=== PATIENT | female | born 1970 | race Caucasian/White ===

== ENCOUNTER 2017-02-13 13:19 | Emergency (ER) | payer OTHER ==
[2017-02-13 14:41] VITALS: BP 142/78
--- NOTE | 2017-02-13 15:07 | UC ---
Throat Pain/Nasal Heike HPI - HPI Summary HPI Summary: ST, nasal heike, mild cough, chills starting about a week ago. 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 Denies trouble breathing, rash, or measured fever. - History of Current Complaint Chief Complaint: UCGeneralIllness Stated Complaint: THROAT,FEVER,COUGH Time Seen by Provider: 02/13/17 14:51 Hx Obtained From: Patient Hx Last Menstrual Period: on Depo Provera ?: No Onset/Duration: Gradual Onset, Lasting Days Severity: Moderate Cough: Productive - occ Associated Signs & Symptoms: Positive: Sinus Discomfort, Nasal Discharge. Negative: Wheezing, Vomiting, Rash - Allergies/Home Medications Allergies/Adverse Reactions: Allergies Allergy/AdvReac Type Severity Reaction Status Date / Time Lactose Allergy Diarrhea Verified 02/13/17 14:41 Hay Allergy Headache, Uncoded 02/13/17 14:41 Nasal Congestion, Shortness of Breath Home Medications: Home Medications Loratadine [Claritin 10 MG CAP] 10 mg PO DAILY 02/13/17 [History Confirmed 02/13] PMH/Surg Hx/FS Hx/Imm Hx Previously Healthy: Yes - Surgical History Surgical History: Yes Surgery Procedure, Year, and Place: Right shoulder Surgery [address] [facility] [place] - Family History Known Family History: Positive: None - Social History Occupation: Employed Full-time Alcohol Use: Occasionally Substance Use Type: None Smoking Status (MU): Never Smoked Tobacco Review of Systems Constitutional: Chills, Fatigue Skin: Negative Eyes: Negative ENT: Sore Throat, Nasal Discharge, Sinus Congestion, Sinus Pain/Tenderness Respiratory: Cough Cardiovascular: Negative Gastrointestinal: Negative Genitourinary: Negative Motor: Negative Neurovascular: Negative Musculoskeletal: Negative Neurological: Negative Psychological: Negative All Other Systems Reviewed And Are Negative: Yes Physical Exam Triage Information Reviewed: Yes Appearance: Well-Appearing, No Pain Distress, Well-Nourished Vital Signs: Initial Vital Signs Temp 99.5 F 02/13/17 14:38 Pulse 78 02/13/17 14:38 Resp 16 02/13/17 14:38 BP 142/78 02/13/17 14:38 Pulse Ox 98 02/13/17 14:38 Vital Signs Reviewed: Yes Eye Exam: Normal Eyes: Positive: Conjunctiva Clear ENT: Positive: Hearing grossly normal, Pharynx normal, Nasal congestion, TMs normal. Negative: Tonsillar swelling, Tonsillar exudate Dental Exam: Normal Neck exam: Normal Neck: Positive: Supple, Nontender, No Lymphadenopathy Respiratory Exam: Normal Respiratory: Positive: Chest non-tender, Lungs clear, Normal breath sounds, No respiratory distress, No accessory muscle use Cardiovascular Exam: Normal Cardiovascular: Positive: RRR, No Murmur Musculoskeletal Exam: Normal Neurological Exam: Normal Neurological: Positive: Alert Psychological Exam: Normal Skin Exam: Normal Throat Pain/Nasal Course/Dx - Differential Dx/Diagnosis Provider Diagnoses: URI, likely viral Discharge - Discharge Plan Condition: Stable Disposition: HOME Patient Education Materials: Sinusitis (ED), Upper Respiratory Infection (ED) Referrals: Ann De Los Santos MD [Primary Care Provider] - Additional Instructions: Rapid strep negative. Though you have clear symptoms of sinus inflammation, chances are very good that it is viral at this time. I expect you to see clear improvement in the next few days. If not, or if you are worsening, please call or return. Come back if you develop increasing fever, shortness of breath, chest pain, bloody sputum, or otherwise worsen. If you have not improved at all after several days, contact your primary care physician or return here.
== END 2017-02-13 15:07 | disposition home or self-care (01) ==
LOC: UCCORT 13:19
DX: J06.9 Acute upper respiratory infection, unspecified (principal)
CPT/HCPCS: 87651; 99211; G0463

== ENCOUNTER 2017-04-27 16:14 | Emergency (ER) | payer OTHER ==
[2017-04-27 16:29] VITALS: BP 135/77
[2017-04-27] MEDS ORDERED: Fluorescein Sodium TOPICAL* 1 MG TEST OPHTHALMIC ONE (16:36)
[2017-04-27] MEDS ORDERED: BSS OPTH.SOL* BTL OPHTHALMIC ONE (16:37)
[2017-04-27] MEDS ORDERED: Erythromycin OPTH OINT* APPLIC OINT LEFT EYE ONE (16:42)
--- NOTE | 2017-04-27 16:49 | UC ---
Eye Complaint HPI - HPI Summary HPI Summary: patients left eye has been irritated and she is rubbing it small amount of pain on the bottom of the eye - History of Current Complaint Chief Complaint: UCEye Stated Complaint: LEFT EYE COMPLAINT Time Seen by Provider: 04/27/17 16:16 Hx Obtained From: Patient Hx Last Menstrual Period: on Depo ?: No Onset/Duration: Sudden Onset, Lasting Days Timing: Constant Severity Initially: Mild Severity Currently: Mild Location of Injury: Sclera Character: Foreign Body Sensation Alleviating Factor(s): Nothing Associated Signs And Symptoms: Positive: Drainage (Clear) - Allergies/Home Medications Allergies/Adverse Reactions: Allergies Allergy/AdvReac Type Severity Reaction Status Date / Time Lactose Allergy Diarrhea Verified 02/13/17 14:41 Hay Allergy Headache, Uncoded 02/13/17 14:41 Nasal Congestion, Shortness of Breath Home Medications: Home Medications Biotin [Eql Biotin] 5,000 mcg PO 04/27/17 [History] PMH/Surg Hx/FS Hx/Imm Hx Previously Healthy: Yes - Surgical History Surgical History: Yes Surgery Procedure, Year, and Place: Right shoulder Surgery 2007 [facility] [place] - Family History Known Family History: Positive: None Negative: Cardiac Disease, Hypertension - Social History Alcohol Use: Occasionally Substance Use Type: None Smoking Status (MU): Never Smoked Tobacco Review of Systems Constitutional: Negative Skin: Negative Eyes: Eye Redness ENT: Negative Respiratory: Negative Cardiovascular: Negative Gastrointestinal: Negative Genitourinary: Negative Motor: Negative Neurovascular: Negative Musculoskeletal: Negative Neurological: Negative Psychological: Negative All Other Systems Reviewed And Are Negative: Yes Physical Exam Triage Information Reviewed: Yes Appearance: Well-Appearing, Well-Nourished, Pain Distress Vital Signs: Initial Vital Signs Temp 97.9 F 04/27/17 16:20 Pulse 62 04/27/17 16:20 Resp 16 04/27/17 16:20 BP 135/77 04/27/17 16:20 Pulse Ox 100 04/27/17 16:20 Vital Signs Reviewed: Yes Eye Exam: Normal Eyes: Positive: Discharge - clear tearing, sclera red and irritiated, flu melody exam shows multiple uptake of fluerescene as evidence of rubbing. ENT Exam: Normal ENT: Positive: Hearing grossly normal, Pharynx normal, TMs normal Dental Exam: Normal Neck exam: Normal Neck: Positive: Supple, Nontender, No Lymphadenopathy Respiratory Exam: Normal Respiratory: Positive: Chest non-tender, Lungs clear, Normal breath sounds Cardiovascular Exam: Normal Cardiovascular: Positive: RRR, No Murmur, Pulses Normal Abdominal Exam: Normal Abdomen Description: Positive: Nontender, No Organomegaly, Soft Musculoskeletal Exam: Normal Neurological Exam: Normal Psychological Exam: Normal Eye Complaint Course/Dx - Course Course Of Treatment: hx obtained, exam perfromed, meds reviewed, treaeted for mild abrasions - Differential Dx/Diagnosis Differential Diagnosis/HQI/PQRI: Conjunctivitis Provider Diagnoses: corneal abrasion Discharge - Discharge Plan Condition: Stable Disposition: HOME Patient Education Materials: Corneal Abrasion (ED)
== END 2017-04-27 17:09 | disposition home or self-care (01) ==
LOC: UCCORT 16:14
DX: S05.02XA Injury of conjunctiva and corneal abrasion without foreign body, left eye, initial encounter (principal); X58.XXXA Exposure to other specified factors, initial encounter
CPT/HCPCS: 99212; A9270-GY; G0463

== ENCOUNTER 2018-01-07 08:26 | Emergency (ER) | payer OTHER ==
[2018-01-07 08:41] VITALS: BP 129/80
--- NOTE | 2018-01-07 08:56 | UC ---
Throat Pain/Nasal Uli HPI - HPI Summary HPI Summary: sore throat x 3 days also c/o right ear pain and swollen neck glands on the right side no fever, no chills, no body aches , no nasal congestion , no cough - History of Current Complaint Chief Complaint: UCGeneralIllness Stated Complaint: SORE THROAT,EARS Time Seen by Provider: 01/07/18 08:42 Hx Obtained From: Patient Hx Last Menstrual Period: unknown, depo ?: No Onset/Duration: Gradual Onset, Lasting Days - 3, Still Present Severity: Moderate Pain Intensity: 8 Cough: None Associated Signs & Symptoms: Negative: Negative, Dysphagia, FB Sensation, Drooling, Wheezing, Hoarseness, Sinus Discomfort, Nasal Discharge, Fever, Vomiting, Rash - Allergies/Home Medications Allergies/Adverse Reactions: Allergies Allergy/AdvReac Type Severity Reaction Status Date / Time lactose Allergy Diarrhea Verified 01/07/18 08:37 Hay Allergy Headache, Uncoded 02/13/17 14:41 Nasal Congestion, Shortness of Breath Home Medications: Home Medications Biotin 1 mg PO DAILY 01/07/18 [History Confirmed 01/07/18] PMH/Surg Hx/FS Hx/Imm Hx Neurological History: Migraine - Surgical History Surgical History: Yes Surgery Procedure, Year, and Place: Right shoulder Surgery 2007 [facility] [place] - Family History Known Family History: Positive: None Negative: Cardiac Disease, Hypertension - Social History Alcohol Use: Occasionally Substance Use Type: None Smoking Status (MU): Never Smoked Tobacco Review of Systems Constitutional: Negative Skin: Negative Eyes: Negative ENT: Sore Throat, Ear Ache Respiratory: Negative Cardiovascular: Negative Gastrointestinal: Negative Genitourinary: Negative Is Patient Immunocompromised?: No All Other Systems Reviewed And Are Negative: Yes Physical Exam Triage Information Reviewed: Yes Appearance: Well-Appearing, No Pain Distress, Well-Nourished Vital Signs: Initial Vital Signs Temp 99.1 F 01/07/18 08:36 Pulse 84 01/07/18 08:36 Resp 17 01/07/18 08:36 BP 129/80 01/07/18 08:36 Pulse Ox 99 01/07/18 08:36 Vital Signs Reviewed: Yes Eye Exam: Normal Eyes: Positive: Conjunctiva Clear ENT: Positive: Normal ENT inspection, Hearing grossly normal, Pharyngeal erythema, TMs normal. Negative: TM bulging, TM dull, TM red, Tonsillar swelling , Tonsillar exudate Neck: Positive: Supple, Tenderness @, Enlarged Nodes @ - right side anterior cervical lymphadenopathy Respiratory: Positive: Chest non-tender, Lungs clear, Normal breath sounds, No respiratory distress Cardiovascular: Positive: RRR, No Murmur, Pulses Normal Skin Exam: Normal Throat Pain/Nasal Course/Dx - Differential Dx/Diagnosis Provider Diagnoses: pharyngitis. otalgia Discharge - Sign-Out/Discharge Documenting (check all that apply): Discharge/Admit/Transfer - Discharge Plan Condition: Stable Disposition: HOME Patient Education Materials: Pharyngitis (ED) Referrals: Ann De Los Santos MD [Primary Care Provider] - If Needed Additional Instructions: negative Rapid strep viral pharyngitis , no need for antibiotics - Billing Disposition and Condition Condition: STABLE Disposition: HOME
== END 2018-01-07 09:04 | disposition home or self-care (01) ==
LOC: UCCORT 08:26
DX: J02.9 Acute pharyngitis, unspecified (principal); H92.01 Otalgia, right ear
CPT/HCPCS: 87651; 99211; G0463

== ENCOUNTER 2018-12-18 12:26 | Emergency (ER) | payer OTHER ==
[2018-12-18 14:13] VITALS: BP 136/81
--- NOTE | 2018-12-18 14:33 | UC ---
Throat Pain/Nasal Uli HPI - HPI Summary HPI Summary: "Sinus" pressure, "greenish brown" congestion, and dental pain for one week. No known fever. Sensation of "there's something stuck in my throat ... I known nothing's there ... dry" aggrevated by swallowing since last night. - History of Current Complaint Chief Complaint: UCRespiratory Stated Complaint: SORE THROAT, SINUS Time Seen by Provider: 12/18/18 14:18 Hx Obtained From: Patient Hx Last Menstrual Period: Depo-Provera ?: No Onset/Duration: Sudden Onset, Lasting Days Severity: Severe Pain Intensity: 8 Associated Signs & Symptoms: Positive: Dysphagia, Sinus Discomfort, Nasal Discharge - Allergies/Home Medications Allergies/Adverse Reactions: Allergies Allergy/AdvReac Type Severity Reaction Status Date / Time amoxicillin [From Augmentin] Allergy Rash Verified 12/18/18 14:09 clavulanic acid Allergy Rash Verified 12/18/18 14:09 [From Augmentin] lactose Allergy Diarrhea Verified 12/18/18 14:09 Hay Allergy Headache, Uncoded 12/18/18 14:09 Nasal Congestion, Shortness of Breath Home Medications: Home Medications Calcium Carb/Vit D3/Minerals [Calcium 600+D Plus [place]] 1 tab PO BID 12/18/18 [ History Confirmed 12/18/18] PMH/Surg Hx/FS Hx/Imm Hx Previously Healthy: Yes - Surgical History Surgical History: Yes Surgery Procedure, Year, and Place: Right shoulder Surgery 2007 [facility] [place] - Family History Known Family History: Positive: None Negative: Cardiac Disease, Hypertension - Social History Alcohol Use: Occasionally Substance Use Type: None Smoking Status (MU): Never Smoked Tobacco Review of Systems All Other Systems Reviewed And Are Negative: Yes ENT: Positive: Sore Throat, Ear Ache, Nasal Discharge, Sinus Congestion Neurological: Positive: Headache Is Patient Immunocompromised?: No Physical Exam Triage Information Reviewed: Yes Appearance: Well-Nourished, Ill-Appearing, Pain Distress Vital Signs: Initial Vital Signs Temp 98.9 F 12/18/18 14:06 Pulse 72 12/18/18 14:06 Resp 16 12/18/18 14:06 BP 136/81 12/18/18 14:06 Pulse Ox 100 12/18/18 14:06 Vital Signs Reviewed: Yes Eye Exam: Normal ENT: Positive: Pharyngeal erythema, Nasal congestion, Nasal drainage, Sinus tenderness Dental: Positive: Other: - pin of the upper right gum line Neck exam: Normal Cardiovascular Exam: Normal Cardiovascular: Positive: RRR, No Murmur, Pulses Normal Abdominal Exam: Normal Abdomen Description: Positive: Nontender, No Organomegaly, Soft Musculoskeletal Exam: Normal Neurological Exam: Normal Psychological Exam: Normal Skin Exam: Normal Throat Pain/Nasal Course/Dx - Course Course Of Treatment: hx obtained, exam performed ,meds reviewed, treated for sinusitis - Differential Dx/Diagnosis Differential Diagnosis/HQI/PQRI: Otitis Media, Pharyngitis, Sinusitis, URI Provider Diagnosis: Sinusitis Discharge - Sign-Out/Discharge Documenting (check all that apply): Patient Departure All imaging exams completed and their final reports reviewed: No Studies - Discharge Plan Condition: Stable Disposition: HOME Prescriptions: Azithromyxin ABEL (NF) [Z-Abel (Zithromax) 250 mg tabs #6] 2 tab PO .TODAY, THEN 1 DAILY #6 tab predniSONE [Prednisone 20 MG TAB] 40 mg PO DAILY #10 tablet Patient Education Materials: Sinusitis (ED) Referrals: Apple Pablo [Primary Care Provider] - Additional Instructions: 1. take the medication as prescribed 2. Increase fluid intake and get plenty of rest 3. Warm compresses to the sinus for pain 4. Ibuprofen as needed. - Billing Disposition and Condition Condition: STABLE Disposition: Home
== END 2018-12-18 14:40 | disposition home or self-care (01) ==
LOC: UCCORT 12:26
DX: J32.9 Chronic sinusitis, unspecified (principal); K08.89 Other specified disorders of teeth and supporting structures; R09.89 Other specified symptoms and signs involving the circulatory and respiratory systems; J02.9 Acute pharyngitis, unspecified; H92.09 Otalgia, unspecified ear; Z88.0 Allergy status to penicillin; Z91.011 Allergy to milk products; Z91.09 Other allergy status, other than to drugs and biological substances
CPT/HCPCS: 99212; G0463

== ENCOUNTER 2019-02-25 12:05 | Emergency (ER) | payer OTHER ==
[2019-02-25 13:21] VITALS: BP 138/87
--- NOTE | 2019-02-25 13:31 | UC ---
Throat Pain/Nasal Uli HPI - HPI Summary HPI Summary: 48-year-old female comes in with a chief complaint of upper respiratory tract infection symptoms symptoms for about one half weeks. She's had rhinorrhea. She has maxillary sinus pressure with brown rhinorrhea. She's been using the [place] pot which makes her nauseous. No recent fevers or chills. She's having some pressure in the right ear. No cough or chest congestion or shortness of breath. - History of Current Complaint Chief Complaint: UCGeneralIllness Stated Complaint: SINUS CONCERN Time Seen by Provider: 02/25/19 13:16 Hx Last Menstrual Period: Depo-Provera Pain Intensity: 8 - Allergies/Home Medications Allergies/Adverse Reactions: Allergies Allergy/AdvReac Type Severity Reaction Status Date / Time amoxicillin [From Augmentin] Allergy Rash Verified 02/25/19 13:21 clavulanic acid Allergy Rash Verified 02/25/19 13:21 [From Augmentin] lactose Allergy Diarrhea Verified 02/25/19 13:21 Hay Allergy Headache, Uncoded 02/25/19 13:21 Nasal Congestion, Shortness of Breath PMH/Surg Hx/FS Hx/Imm Hx Previously Healthy: Yes Neurological History: Migraine - Surgical History Surgical History: Yes Surgery Procedure, Year, and Place: Right shoulder Surgery 2007 [facility] [place] - Family History Known Family History: Positive: None Negative: Cardiac Disease, Hypertension - Social History Alcohol Use: Occasionally Substance Use Type: None Smoking Status (MU): Never Smoked Tobacco Review of Systems All Other Systems Reviewed And Are Negative: Yes Constitutional: Positive: Negative Skin: Positive: Negative Eyes: Positive: Negative ENT: Positive: Ear Ache, Nasal Discharge, Sinus Congestion, Sinus Pain/ Tenderness Respiratory: Positive: Negative Cardiovascular: Positive: Negative Gastrointestinal: Positive: Negative Motor: Positive: Negative Neurovascular: Positive: Negative Musculoskeletal: Positive: Negative Neurological: Positive: Negative Psychological: Positive: Negative Is Patient Immunocompromised?: No Physical Exam Triage Information Reviewed: Yes Appearance: Well-Appearing, No Pain Distress, Well-Nourished Vital Signs: Initial Vital Signs Temp 97.0 F 02/25/19 13:15 Pulse 78 02/25/19 13:15 Resp 18 02/25/19 13:15 BP 138/87 02/25/19 13:15 Pulse Ox 100 02/25/19 13:15 Vital Signs Reviewed: Yes Eye Exam: Normal Eyes: Positive: Conjunctiva Clear ENT: Positive: Pharyngeal erythema, Nasal congestion, Nasal drainage, TMs normal Neck: Positive: Supple, Nontender Respiratory: Positive: Lungs clear Cardiovascular: Positive: RRR Musculoskeletal Exam: Normal Musculoskeletal: Positive: Strength Intact, ROM Intact Neurological: Positive: Alert, Muscle Tone Normal Psychological Exam: Normal Psychological: Positive: Age Appropriate Behavior Skin Exam: Normal Throat Pain/Nasal Course/Dx - Differential Dx/Diagnosis Provider Diagnosis: Sinusitis Discharge - Sign-Out/Discharge Documenting (check all that apply): Patient Departure All imaging exams completed and their final reports reviewed: No Studies - Discharge Plan Condition: Stable Disposition: HOME Prescriptions: DOXYcycline CAP(*) [DOXYcycline 100MG CAP(*)] 100 mg PO BID #20 cap Fluconazole 150 MG TAB* [Diflucan 150 MG TAB*] 150 mg PO ONCE #2 tablet Patient Education Materials: Sinusitis (ED) Referrals: Apple Pablo [Primary Care Provider] - Additional Instructions: FOLLOW UP WITH YOUR DOCTOR IF NOT COMPLETELY IMPROVED. GET REEVALUATED SOONER IF WORSE OR ANY QUESTIONS OR CONCERNS. - Billing Disposition and Condition Condition: STABLE Disposition: Home
== END 2019-02-25 13:38 | disposition home or self-care (01) ==
LOC: UCCORT 12:05
DX: J32.9 Chronic sinusitis, unspecified (principal); Z88.0 Allergy status to penicillin
CPT/HCPCS: 99212; G0463

== ENCOUNTER 2019-05-15 12:53 | Emergency (ER) | payer OTHER ==
[2019-05-15 13:34] VITALS: BP 142/83
--- NOTE | 2019-05-15 13:43 | UC ---
Throat Pain/Nasal Uli HPI - HPI Summary HPI Summary: 48-year-old female comes in with a chief complaint of 2 weeks of upper respiratory tract and sinus infection symptoms. She said rhinorrhea that has become increasingly dark with blood in it. She has maxillary sinus pressure and pain in her upper teeth. She reports that she gets recurrent sinus infections and has been seeing her primary care doctor about that. They have discussed seeing ENT here in [place]. Patient does have some ear pressure also has a dry cough. Denies any wheezing. Has used Flonase in the past however that gives her migraines. Has tried [id number] medication without any relief. - History of Current Complaint Chief Complaint: UCGeneralIllness Stated Complaint: SINUS Time Seen by Provider: 05/15/19 13:23 Hx Last Menstrual Period: depo Pain Intensity: 7 - Allergies/Home Medications Allergies/Adverse Reactions: Allergies Allergy/AdvReac Type Severity Reaction Status Date / Time amoxicillin [From Augmentin] Allergy Rash Verified 05/15/19 13:31 clavulanic acid Allergy Rash Verified 05/15/19 13:31 [From Augmentin] lactose Allergy Diarrhea Verified 05/15/19 13:31 Penicillins Allergy Rash Verified 05/15/19 13:31 Hay Allergy Headache, Uncoded 05/15/19 13:31 Nasal Congestion, Shortness of Breath Home Medications: Home Medications Ibuprofen TAB* [Motrin TAB* 400 MG] 400 mg PO Q6H PRN 05/15/19 [History Confirmed 05/15/19] PMH/Surg Hx/FS Hx/Imm Hx Previously Healthy: Yes - recurrent sinusitis Neurological History: Migraine - Surgical History Surgical History: Yes Surgery Procedure, Year, and Place: Right shoulder Surgery 2007 [facility] [place] - Family History Known Family History: Positive: None Negative: Cardiac Disease, Hypertension - Social History Alcohol Use: Occasionally Substance Use Type: None Smoking Status (MU): Never Smoked Tobacco Review of Systems All Other Systems Reviewed And Are Negative: Yes Constitutional: Positive: Negative Skin: Positive: Negative Eyes: Positive: Negative ENT: Positive: Sore Throat, Nasal Discharge, Sinus Congestion, Sinus Pain/ Tenderness Respiratory: Positive: Cough Cardiovascular: Positive: Negative Gastrointestinal: Positive: Negative Motor: Positive: Negative Neurovascular: Positive: Negative Musculoskeletal: Positive: Negative Neurological: Positive: Negative Psychological: Positive: Negative Is Patient Immunocompromised?: No Physical Exam Triage Information Reviewed: Yes Appearance: Well-Appearing, No Pain Distress, Well-Nourished Vital Signs: Initial Vital Signs Temp 98.3 F 05/15/19 13:31 Pulse 69 05/15/19 13:31 Resp 14 05/15/19 13:31 BP 142/83 05/15/19 13:31 Pulse Ox 100 05/15/19 13:31 Vital Signs Reviewed: Yes Eye Exam: Normal Eyes: Positive: Conjunctiva Clear ENT: Positive: Pharyngeal erythema, Nasal congestion, Nasal drainage, TMs normal Neck: Positive: Supple Respiratory: Positive: Lungs clear, Normal breath sounds, No respiratory distress Cardiovascular: Positive: RRR Musculoskeletal: Positive: Strength Intact, ROM Intact Neurological: Positive: Alert, Muscle Tone Normal Psychological: Positive: Age Appropriate Behavior Skin Exam: Normal Throat Pain/Nasal Course/Dx - Course Course Of Treatment: Patient is discussed going and seeing Dr. Espinoza with her primary care physician. Evaluate sooner if worse or any questions or concerns. - Differential Dx/Diagnosis Provider Diagnosis: Sinusitis Discharge ED - Sign-Out/Discharge Documenting (check all that apply): Patient Departure All imaging exams completed and their final reports reviewed: No Studies - Discharge Plan Condition: Stable Disposition: HOME Prescriptions: DOXYcycline CAP(*) [DOXYcycline 100MG CAP(*)] 100 mg PO BID #20 cap Fluconazole 150 MG TAB* [Diflucan 150 MG TAB*] 150 mg PO ONCE #2 tablet Patient Education Materials: Sinusitis (ED) Referrals: Apple Pablo [Primary Care Provider] - Candido Espinoza MD [Medical Doctor] - Richi Real MD [Medical Doctor] - Additional Instructions: FOLLOW UP WITH ENT. GET REEVALUATED SOONER IF WORSE OR ANY QUESTIONS OR CONCERNS. - Billing Disposition and Condition Condition: STABLE Disposition: Home
== END 2019-05-15 13:48 | disposition home or self-care (01) ==
LOC: UCCORT 12:53
DX: J32.9 Chronic sinusitis, unspecified (principal); Z88.0 Allergy status to penicillin
CPT/HCPCS: 99212; G0463